=== PATIENT | male | born 1975 ===

== ENCOUNTER → 2020-11-30 12:15 | Outpatient (BNVA) | payer OTHER, SELFPAY | PROVIDERS: PCP Internal Medicine; Visit Provider Nurse Practitioner Gerontology | DX: Z76.89 Persons encountering health services in other specified circumstances (principal) ==

== ENCOUNTER → 2021-01-25 12:07 | Outpatient (BNVA) | payer OTHER, SELFPAY | PROVIDERS: Visit Provider Nurse Practitioner Gerontology ==

== ENCOUNTER 2022-05-25 11:57 | Emergency (ER) | payer OTHER, SELFPAY ==
[2022-05-25 12:23] VITALS: BP 146/96; PULSE 80; RESP 20; TEMP 36.1; O2SAT 96; BMI 44.9
[2022-05-25 14:29] LABS: MANUAL DIFF FLAG NO
[2022-05-25 14:30] LABS: Basophils Percent Auto 0.3 % (0-2); Eosinophils Absolute Auto 0.2 X10*3/uL (0.0-0.4); Eosinophils Percent Auto 1.4 % (0-4); Hemoglobin 16.4 g/dl (14.0-18.0); Imm Gran Abs Auto 0.07 X10*3/uL (0.00-0.03); Imm Gran Pct Auto 0.6 % (0.0-0.4); Lymphocytes Absolute Auto 3.8 X10*3/uL (1.2-4.9); Lymphocytes Percent Auto 30.1 % (20-40); Mean Corpuscular HGB Conc 33.5 g/dl (31.0-36.0); Mean Corpuscular Hemoglobin 29.2 pg (27.0-33.0); Mean Corpuscular Volume 87.3 fL (80.0-98.0); Mean Platelet Volume 9.1 fL (9.4-12.4); Monocytes Percent Auto 7.7 % (2-11); Neutrophils Absolute Auto 7.5 x10*3/uL (2.0-8.3); Neutrophils Percent Auto 59.9 % (45-73); Platelet Count 244 X10*3/uL (160-400); Red Blood Count 5.61 X10*6/uL (4.60-5.80); Red Cell Distribution Width 12.4 % (11.0-16.0); White Blood Count 12.5 X10*3/uL (4.8-10.8)
[2022-05-25 14:46] LABS: Anion Gap 11 (12-20); Blood Urea Nitrogen 12 mg/dL (9-16); Calcium 8.3 mg/dL (8.4-10.2); Carbon Dioxide 30 mmol/L (22-29); Chloride 101 mmol/L (96-108); Creatinine Clr Calc Pharmacy 134.5; Estimated Glomerular Filt Rate > 60; Glucose Random 180 mg/dL (60-115); Potassium 4.2 mmol/L (3.3-5.1); Sodium 138 mmol/L (135-145)
== END 2022-05-25 22:18 | disposition left against medical advice (07) ==
PROVIDERS: Emergency Provider Emergency Medicine; PCP Internal Medicine
DX: M25.642 Stiffness of left hand, not elsewhere classified (principal); M79.605 Pain in left leg; M79.604 Pain in right leg; E11.9 Type 2 diabetes mellitus without complications; I10 Essential (primary) hypertension; E78.5 Hyperlipidemia, unspecified; E66.09 Other obesity due to excess calories; Z68.42 Body mass index [BMI] 45.0-49.9, adult
CPT/HCPCS: 36415; 80048; 85025; 99281; 99283

== ENCOUNTER → 2022-10-02 12:35 | Outpatient (BNVA) | payer OTHER, SELFPAY | PROVIDERS: PCP Internal Medicine; Visit Provider Internal Medicine Endocrinology, Diabetes & Metabolism | DX: E11.65 Type 2 diabetes mellitus with hyperglycemia (principal); Z79.4 Long term (current) use of insulin | CPT/HCPCS: 82947; 83036; 99212 ==

== ENCOUNTER 2022-12-18 09:29 | Outpatient (REF) | payer OTHER, SELFPAY ==
--- NOTE | ~2022-12-18 | XR_ITS ---
EXAMINATION: XR FOOT, RIGHT CLINICAL INFORMATION: Pain COMPARISON: September 27, 2015. TECHNIQUE: AP, lateral, and oblique views of the right foot. FINDINGS: There is no evidence of acute fracture or dislocation of the right foot. No significant soft tissue swelling is seen. Vascular calcifications are noted. There is a calcaneal spur site of insertion of the Achilles tendon. XR/XR foot RT 2V IMPRESSION: Calcaneal spur. No significant bony abnormality appreciated.
--- NOTE | ~2022-12-18 | XR_ITS ---
EXAMINATION: XR CHEST CLINICAL INFORMATION: Cough COMPARISON: None TECHNIQUE: 2 views of the chest were obtained. FINDINGS: There is some bilateral opacities identified as well as bronchial wall thickening. Heart normal size. No pneumothorax or pleural effusion. XR/XR chest 2V IMPRESSION: Bilateral regions of patchy disease with interstitial prominence. Above findings could be seen with interstitial edema, infectious etiology, or possible reactive airways disease.
--- NOTE | ~2022-12-18 | XR_ITS ---
EXAMINATION: XR FOOT, LEFT CLINICAL INFORMATION: Right foot pain COMPARISON: 09/27/2015 TECHNIQUE: AP, lateral, and oblique views of the left foot. FINDINGS: There is no evidence of acute fracture or dislocation of the left foot. No destructive bony lesions are identified. Stable calcaneal spurs sites of insertion of Achilles tendon is seen. There has been an increase in degenerative spurring about the dorsum of the talar navicular joint. No overlying soft tissue swelling is appreciated in this location. There is stability of an exostosis dorsally off of the talar bone. There appears to be a stable pes cavus deformity. XR/XR foot LT 2V IMPRESSION: No evidence of acute fracture or dislocation of the right foot. Calcaneal spur. Mild increase in degenerative spurring dorsum of the talonavicular joint.
[2022-12-18 11:30] LABS: Alanine Aminotransferase 29 U/L (0-40); Albumin Level 4.1 g/dL (3.5-5.0); Alkaline Phosphatase 140 U/L (39-117); Anion Gap 15 (12-20); Aspartate Amino Transferase 18 U/L (5-37); Bilirubin Total 0.4 mg/dL (0.0-1.0); Blood Urea Nitrogen 14 mg/dL (9-16); Calcium 9.1 mg/dL (8.4-10.2); Carbon Dioxide 28 mmol/L (22-29); Chloride 99 mmol/L (96-108); Cholesterol 214 mg/dL; Estimated Glomerular Filt Rate > 60; Glucose Fasting 166 mg/dL (60-99); HDL Cholesterol 27 mg/dL; LDL Cholesterol Calculated 146 mg/dl; Potassium 5.3 mmol/L (3.3-5.1); Sodium 137 mmol/L (135-145); Total Protein 7.6 g/dL (6.5-8.0); Triglycerides 209 mg/dL
[2022-12-18 11:47] LABS: Vitamin D 25-OH Total 18.3 ng/mL (>30)
[2022-12-18 13:32] LABS: Creatinine Urine 70.16 mg/dL; Microalbum/Creatinine Ratio Ur 34.2 ug/mg cr
== END 2022-12-18 09:30 | disposition home or self-care (01) ==
LOC: HO.XRAY 09:29
PROVIDERS: PCP Internal Medicine; Visit Provider Internal Medicine
DX: M79.671 Pain in right foot (principal); M79.672 Pain in left foot; R05.9 Cough, unspecified; E11.42 Type 2 diabetes mellitus with diabetic polyneuropathy; E78.5 Hyperlipidemia, unspecified; E55.9 Vitamin D deficiency, unspecified; Z79.4 Long term (current) use of insulin
CPT/HCPCS: 36415; 71046; 73620; 80053; 80061; 82043; 82306

== ENCOUNTER 2023-01-22 09:56 | Outpatient (REF) | payer OTHER, SELFPAY ==
[2023-01-22 11:47] LABS: Cholesterol 221 mg/dL; HDL Cholesterol 25 mg/dL; LDL Cholesterol Calculated 138 mg/dl; Triglycerides 291 mg/dL
[2023-01-22 12:40] LABS: Microalbum/Creatinine Ratio Ur 17.6 ug/mg cr
== END 2023-01-22 09:57 | disposition home or self-care (01) ==
LOC: HO.LAB 09:56
PROVIDERS: PCP Internal Medicine; Visit Provider Internal Medicine Endocrinology, Diabetes & Metabolism
DX: E11.65 Type 2 diabetes mellitus with hyperglycemia (principal); E11.42 Type 2 diabetes mellitus with diabetic polyneuropathy; E78.5 Hyperlipidemia, unspecified; Z79.4 Long term (current) use of insulin; Z79.899 Other long term (current) drug therapy
CPT/HCPCS: 36415; 80061; 82043; 82947; 83036; 99212

== ENCOUNTER → 2023-04-04 14:56 | Outpatient (BNVA) | payer OTHER, SELFPAY | PROVIDERS: PCP Internal Medicine; Visit Provider Nurse Practitioner Family | DX: M79.671 Pain in right foot (principal); M79.672 Pain in left foot; E11.40 Type 2 diabetes mellitus with diabetic neuropathy, unspecified; M79.605 Pain in left leg; M79.604 Pain in right leg; I73.9 Peripheral vascular disease, unspecified | CPT/HCPCS: 99202 ==

== ENCOUNTER 2023-05-16 09:14 | Outpatient (AMB) | payer OTHER, SELFPAY ==
--- NOTE | 2023-05-16 09:20 | MHC.PC.OV ---
Vital Signs 05/16/23 09:22 Height 6 ft 1 in Weight 306 lb BMI 40.4 BP 120/78 Blood Pressure Location Lt brachial Position Sitting Intake Visit Reasons: PE Intake Note: Patient here for a physical exam Motor Vehicle Licence Examiner Required: No Accompanied by: Self / Same As Patient Allergies No Known Allergies Allergy (Verified 05/16/23 09:39) Medication List - Last Reconciled 05/16/23 by Skylar Luna MD alcohol swabs 1 pad topical QID amitriptyline 25 mg PO BEDTIME atorvastatin 40 mg PO BEDTIME 90 days blood sugar diagnostic (FreeStyle Lite Strips) 1 strip miscellaneous QID blood-glucose meter (FreeStyle Lite Meter kit) As directed empagliflozin (Jardiance) TAKE 1 TABLET BY MOUTH EVERY DAY flash glucose scanning reader (FreeStyle Brandy 2 [place]) As directed flash glucose sensor (FreeStyle Brandy 2 Sensor kit) As directed change every 14 days gabapentin 300 mg PO TID 30 days ibuprofen 800 mg PO Q8H PRN insulin regular hum U-500 conc (Humulin R U-500 (Conc) Insulin Kwikpen) 95 units before breakfast and 75 units before supper subcutaneously; lancets (FreeStyle Lancets) Use 1 lancet four times a day lidocaine-prilocaine 2.5-2.5 % 1 appl topical ONCE metformin 1,000 mg (2 x 500 mg) PO BID omeprazole 20 mg PO QAM 90 days pen needle, diabetic (BD Ultra-Fine Earnestine Pen Needle) As directed two daily semaglutide (Ozempic) 0.25 mg (0.4 mL) subcut QWEEK 90 days Tobacco use date assessed: 12/06/22 Dental Screening Dental Screen Date: 05/16/23 Did you have a dental visit in the last 12 months?: No Did you have a dental problem in the last 6 months where you did not have access to dental care?: No Was dental information given to patient?: No HPI HPI Comments History of Present Illness Details This is a 48-year-old male with diabetes mellitus type 2 on long-term current use of insulin, morbid obesity and moderate recurrent major depression that comes today for his physical exam. A1c within goal. Depression somewhat stable with amitriptyline. He is morbidly obese with a BMI of 40.4 and will be referred to weight management. On gabapentin for his painful diabetic neuropathy which is is still present. He also has pain in both hands and is not able to make a fist. Not able to work at the moment. Has never had a colonoscopy and will be referred to Gastroenterology. No diabetic eye exam for over a year and will be referred to Ophthalmology. Labs were ordered. [facility] Medical History (Updated 05/16/23 @ 10:00 by Skylar Luna MD) BMI 36.0-36.9,adult Diabetes mellitus with hyperglycemia Essential hypertension Foot pain, bilateral Hyperhidrosis Hyperlipidemia LDL goal <100 Neuropathy Obesity due to excess calories Type 2 diabetes mellitus with diabetic polyneuropathy Surgical History Hx of foot surgery Hx of tonsillectomy Family History Father No problems noted. Mother Diabetes mellitus Social History (Updated 05/16/23 @ 09:44 by Skylar Luna MD) Household Members: Family Housing: Apartment Alcohol intake: former Patient Tobacco Use Status: Current everyday Tobacco user Tobacco use type: Cigarette Cigarettes Per Day: 2 e-Cigarette/Vaping Use: Never Used Second Hand Smoke Exposure: No Substance Use Type: Crack/Cocaine service: No Current occupational status: unemployed Cognitive needs: No Hearing needs: No Vision needs: No Questionnaire Thrive Questionnaire Date Thrive assessed: 12/06/22 ROB-7 AMB Questionnaire ROB-7 Date ROB - 7 assessed: 12/06/22 Source: Developed by Drs. Jayson Hayden, Shaenlle Kee, Chico Ernandez and colleagues, with an educational manny from [employer]. Review of Systems Const All systems reviewed & are unremarkable except as noted in HPI and below Eyes Reports no additional complaints, Denies change in vision and Denies other visual disturbances Card Denies chest pain at rest, Denies chest pain with activity, Denies edema, Denies irregular heart rhythm, Denies claudication, Denies dyspnea, Denies dyspnea on exertion, Denies orthopnea, Denies paroxysmal nocturnal dyspnea and Denies slow heart rate Resp Denies cough, Denies dyspnea and Denies dyspnea on exertion GI Denies abdominal pain, Denies change in bowel habits, Denies excessive flatus, Denies nausea and Denies vomiting Denies urinary hesitancy, Denies urinary incontinence and Denies urinary urgency Musc Denies abnormal gait, Denies atrophy, Denies deformity and Denies limited range of motion Skin/Breast Denies bleeding lesions, Denies changing lesions and Denies rash Neuro Denies abnormal gait and Denies lack of coordination Physical exam (Primary Care) Vital Signs: Last Vital Signs BP 120/78 05/16/23 09:22 BMI result Body Mass Index 40.4 Tobacco/Smoking Status: Tobacco use Status Tobacco use date assessed 12/06/22 05/16/23 09:28 Patient Tobacco Use Status Current everyday Tobacco 05/16/23 09:28 Tobacco use type Cigarette 05/16/23 09:28 e-Cigarette/Vaping Use Never Used 05/16/23 09:28 Thrive Assessment: Date of Thrive Assessment Date Thrive assessed 12/06/22 05/16/23 09:28 Const Orientation/consciousness: patient oriented x3 HENMT Head: Yes normal to inspection, Yes normocephalic and Yes atraumatic Ears: external ears normal Eyes General: appearance normal, both eyes and all related structures Eyelids: Yes eyelids normal Conjunctivae: conjunctivae normal Neck Neck: Yes normal visual inspection and Yes supple Resp Effort & Inspection: normal respiratory effort Auscultation: clear to auscultation bilaterally Cardio Jugular venous distension: no JVD Rate: regular rate Rhythm: regular rhythm Heart sounds: S1 normal heart sound present and S2 normal heart sound present GI Inspection: Yes normal to inspection Palpation (GI): Soft to palpation and nontender Auscultation: normal bowel sounds Skin General skin exam: no rashes or lesions noted Neuro General: patient oriented x3 and no focal motor deficits Extrem Other: Not able to make a fist bilateral General: Yes full ROM Psych Appearance: grossly normal Results AMB Hemoglobin A1c AMB Hemoglobin A1c 6.6 % Last Edit by SAEED Linder on 05/16/23 09:33 Results Reviewed Results Reviewed: Laboratory Last Values Hgb A1c (Clinic) 6.6 % (4.0-6.0) H 05/16/23 09:29 Assessment and Plan Assessment & Plan (1) Physical exam: Code(s): Z00.00 - Encounter for general adult medical examination without abnormal findings Plan: Repeat in a year. (2) Type 2 diabetes mellitus, with long-term current use of insulin: Code(s): E11.9 - Type 2 diabetes mellitus without complications; Z79.4 - MCC (current) use of insulin Plan: Continue insulin, metformin and ozempic. A1c goal is equal or less than 7% (3) Moderate recurrent major depression: Code(s): F33.1 - Major depressive disorder, recurrent, moderate Plan: Continue amitriptyline. (4) Morbid obesity with BMI of 40.0-44.9, adult: Code(s): E66.01 - Morbid (severe) obesity due to excess calories; Z68.41 - Body mass index [BMI] 40.0-44.9, adult Plan: Referred to weight management Orders: Orders Vitamin B12 and Folate Today E53.8 - Deficiency of other specified B group vitamins Comprehensive [place]. Panel Fast Today E66.01 - Morbid (severe) obesity due to excess calories, Z68.41 - Body mass index [BMI] 40.0-44.9, adult Lipid Panel Today E78.5 - Hyperlipidemia, unspecified Vitamin D 25-OH Total Today E55.9 - Vitamin D deficiency, unspecified OT Evaluation and Treatment Today M79.641 - Pain in right hand, M79.642 - Pain in left hand AMB Hemoglobin A1c Today E11.42 - Type 2 diabetes mellitus with diabetic polyneuropathy Referrals Medical Weight Management Referral E66.01 - Morbid (severe) obesity due to excess calories, Z68.41 - Body mass index [BMI] 40.0-44.9, adult Ophthalmology Referral E11.65 - Type 2 diabetes mellitus with hyperglycemia, Z79.4 - spacer type bar and segment (current) use of insulin Gastroenterology Referral Z12.11 - Encounter for screening for malignant neoplasm of colon Medications: Refilled semaglutide (Ozempic) for 4 weeks 0.25 mg (0.4 mL) subcut QWEEK 90 days 5.2 mL 2RF E11.65 - Type 2 diabetes mellitus with hyperglycemia Coding Level of Care Code Est Pt Prev Care 40-64y(98366) Diagnoses Physical exam Z00.00 Type 2 diabetes mellitus, with long-term current use of insulin E11.9; Z79.4 Moderate recurrent major depression F33.1 Morbid obesity with BMI of 40.0-44.9, adult E66.01; Z68.41 Time Spent (min) 35
[2023-05-16 09:22] VITALS: BP 120/78; BMI 40.4
== END 2023-05-16 09:50 | disposition home or self-care (01) ==
PROVIDERS: Visit Provider Internal Medicine
DX: Z00.00 Encounter for general adult medical examination without abnormal findings (principal); Z79.4 Long term (current) use of insulin; F33.1 Major depressive disorder, recurrent, moderate; E66.01 Morbid (severe) obesity due to excess calories; Z68.41 Body mass index [BMI] 40.0-44.9, adult; E11.42 Type 2 diabetes mellitus with diabetic polyneuropathy
CPT/HCPCS: 83036; 99396

== ENCOUNTER 2023-05-16 15:47 | Outpatient (AMB) | payer OTHER, SELFPAY ==
--- NOTE | 2023-05-16 15:48 | MHC.OFFVIS ---
Intake Intake Visit Reasons: SECTION WEAVER/Ref pain Manag. PVD/ LE pain Intake Note: Patient is here for a SECTION WEAVER/Referral from pain management for PVD/LE pain, pt c/o Maximo LE cramping/tingling, numbness, swelling, unable to walk short distances. patient stated his symptoms started a few years ago, patient is diabetic, patient is a smoker, no hx of blood clots Associate Software Application Engineer Required: Yes Associate Software Application Engineer Name: Pamela Adalberto CLCaren Allergies No Known Allergies Allergy (Verified 05/16/23 15:51) HPI SECTION WEAVER/Ref pain Manag. PVD/ LE pain HPI Details Complex 48-year-old gentleman presents for evaluation regarding pain and discomfort of the lower extremities. Unclear white is currently going on with his legs. He reports that they are painful uncomfortable he reports that there is more pain and burning towards the lower portion of his foot and heel. He has some numbness and tingling as well. He is requiring the use of a cane. He can barely walk a block. He reports that they are or also a source of itching and discomfort for him. Spoke reports only 2-6 3 cigarettes a day. In addition he has been a diabetic for 6-7 years. Now presents to us for vascular evaluation. [facility] Medical History BMI 36.0-36.9,adult Diabetes mellitus with hyperglycemia Essential hypertension Foot pain, bilateral Hyperhidrosis Hyperlipidemia LDL goal <100 Neuropathy Obesity due to excess calories Type 2 diabetes mellitus with diabetic polyneuropathy Surgical History Hx of foot surgery Hx of tonsillectomy Family History Father No problems noted. Mother Diabetes mellitus Social History Household Members: Family Housing: Apartment Alcohol intake: former Patient Tobacco Use Status: Current everyday Tobacco user Tobacco use type: Cigarette Cigarettes Per Day: 2 e-Cigarette/Vaping Use: Never Used Second Hand Smoke Exposure: No Substance Use Type: Crack/Cocaine service: No Current occupational status: unemployed Cognitive needs: No Hearing needs: No Vision needs: No Review of Systems Const All systems reviewed & are unremarkable except as noted in HPI and below Reports no additional complaints ENT Reports Normal hearing present Card Denies chest pain, Denies chest pain at rest, Denies chest pain with activity and Denies pedal edema Resp Denies cough GI Denies abdominal pain Musc Denies abnormal gait, Denies muscle cramps and Denies radiating pain into limb Skin/Breast Denies skin ulcer and Denies wounds Neuro Reports Normal hearing present and Denies abnormal gait Psych Reports no additional complaints Physical Exam Const General: cooperative, healthy appearing and comfortable Orientation/consciousness: oriented to person, oriented to place and oriented to time HEENT Head: Yes normal to inspection Neck Neck: Yes normal visual inspection Carotids: no bruits Chest Chest palpation & inspection: normal inspection of the chest Resp Effort & Inspection: normal respiratory effort and able to speak in complete sentences Auscultation: clear to auscultation bilaterally, no crackles, no rales, no rhonchi and no wheezes Cardio Other: Bilateral DP signal Rate: regular rate Rhythm: regular rhythm Heart sounds: S1 normal heart sound present and S2 normal heart sound present Bruits: no carotid bruits Peripheral pulses: Peripheral pulses 2+ throughout GI Inspection: Yes normal to inspection Skin Other: Dry excoriated pretibial surfaces in calf bilateral lower extremity Wounds: no wounds Hair: normal Neuro General: oriented to person, oriented to place and oriented to time Cranial nerves: Yes CN's II-XII intact bilaterally and Yes Normal hearing present Cognition (Neuro): normal cognition Motor exam (neuro): 5/5 motor strength present throughout Extrem Other: venous exam: No significant superficial varicosities or spider telangiectasias, minimal edema General: No clubbing, No cyanosis and No edema Psych Appearance: grossly normal Mental Status: mental status grossly normal Speech and movement: Normal speech and movement present Results AMB Hemoglobin A1c AMB Hemoglobin A1c 6.6 % Last Edit by SAEED Linder on 05/16/23 09:33 Assessment & Plan Assessment & Plan (1) PAD (peripheral artery disease): Code(s): I73.9 - Peripheral vascular disease, unspecified Plan: Unclear etiology of lower extremity pain and discomfort. I was unable to appreciate palpable pulses. I have taken the liberty of ordering noninvasive arterial testing. I do suspect there is a neuropathic component as he did have elevated hemoglobin A1cs in the past. Once we rule that out we can assess him further. He will follow up with us after arterial testing. We did discuss risk factor modification and the importance of ambulation. In addition we did discuss smoking cessation as well. Thank you for allowing us to assist in his care. If there are any questions or concerns please do not hesitate to contact us. Orders: Orders US arterial duplex LE BI 1 Week I73.9 - Peripheral vascular disease, unspecified Quality Reporting (2019) Adult ([facility] 138/12/26/68) Smoking risk assessment performed?: Yes Patient Tobacco Use Status: Current everyday Tobacco user Coding Level of Care Code New Pt Level 4 (15400) Diagnoses PAD (peripheral artery disease) I73.9
== END 2023-05-16 16:19 | disposition home or self-care (01) ==
PROVIDERS: PCP Internal Medicine; Visit Provider Surgery Vascular Surgery
DX: I73.9 Peripheral vascular disease, unspecified (principal)
CPT/HCPCS: 99204

== ENCOUNTER → 2023-05-16 15:47 | Outpatient (BNVA) | payer OTHER, SELFPAY | PROVIDERS: PCP Internal Medicine; Visit Provider Surgery Vascular Surgery | DX: I73.9 Peripheral vascular disease, unspecified (principal) | CPT/HCPCS: 99202 ==

== ENCOUNTER 2023-06-25 13:58 | Outpatient (AMB) | payer OTHER, SELFPAY ==
--- NOTE | 2023-06-25 14:09 | A.OFFVIS_ITS ---
Intake VS Expanded 06/25/23 14:10 Height 6 ft 1 in Weight 302 lb 7.587 oz BMI 39.9 Intake Visit Reasons: Type 2 DM Allergies No Known Allergies Allergy (Verified 05/16/23 15:51) HPI Nutrition Presentation Details Pt presents for MNT for T2DM . Pt was referred by Dr. Sahni, cupola patcher Pt reports having Rice/beans , ice tea sandwhich with ham/cheese TUJ-Jybqhnb-Tj.Jeor Equation Height 6 ft 1 in Weight 302 lb Resting Metabolic Rate 2286.35 Calculated Activity Level Sedentary Calories Needed to Maintain Weight 2743.62 Diagnosis Nutrition problem #1 food nutri know defi As related to (etiology) #1 diagnosis As evidenced by (sign/symptom) #1 knowledge deficit of diet Most Recent Diabetes Results: Microalb/Creat Ratio 17.6 ug/mg cr 01/22/23 Cholesterol 221 mg/dL 01/22/23 HDL Cholesterol 25 mg/dL 01/22/23 Triglycerides 291 mg/dL 01/22/23 Creatinine 0.95 mg/dL (0.5-1.4) 12/18/22 Blood Urea Nitrogen 14 mg/dL (9-16) 12/18/22 Sodium 137 mmol/L (135-145) 12/18/22 Potassium 5.3 mmol/L (3.3-5.1) H 12/18/22 Chloride 99 mmol/L (96-108) 12/18/22 Carbon Dioxide 28 mmol/L (22-29) 12/18/22 Calcium 9.1 mg/dL (8.4-10.2) 12/18/22 AST 18 U/L (5-37) 12/18/22 ALT 29 U/L (0-40) 12/18/22 Total Protein 7.6 g/dL (6.5-8.0) 12/18/22 Albumin 4.1 g/dL (3.5-5.0) 12/18/22 [facility] Medical History BMI 36.0-36.9,adult Diabetes mellitus with hyperglycemia Essential hypertension Foot pain, bilateral Hyperhidrosis Hyperlipidemia LDL goal <100 Neuropathy Obesity due to excess calories Type 2 diabetes mellitus with diabetic polyneuropathy Surgical History Hx of foot surgery Hx of tonsillectomy Family History Father No problems noted. Mother Diabetes mellitus Social History Household Members: Family Housing: Apartment Alcohol intake: former Patient Tobacco Use Status: Current everyday Tobacco user Tobacco use type: Cigarette Cigarettes Per Day: 2 e-Cigarette/Vaping Use: Never Used Second Hand Smoke Exposure: No Substance Use Type: Crack/Cocaine service: No Current occupational status: unemployed Cognitive needs: No Hearing needs: No Vision needs: No Assessment & Plan Assessment & Plan (1) Type 2 diabetes mellitus, with long-term current use of insulin: Code(s): E11.9 - Type 2 diabetes mellitus without complications; Z79.4 - long term acute care registered nurse (current) use of insulin Plan: wt: 137 kg Est kcal needs as per MSJ: 2700 (40% carb, 30% protein/fat) Est fluid needs as per 25- ml/d: 3425 Est prot per day as per 1 g/kg bw: 137 Recommend fiber intake : 8-10 g per day and gradually increase to 25-28 g per day for women and 35-38 g for men or as tolerated Recommend sodium intake per day : less than 2000 mg Educated patient on: ( R = reviewed V = verbalizes understanding N/R = needs review N/A = not applicable * Food sources of carbohydrate, adequate serving sizes and its role in various health conditions: R * Differences between complex carbohydrates a simple carbohydrates, role of fiber in diet: R * Differences between types of fats and role in diet (mono on saturated fat fatty acids, saturated fatty acids, trans fats): R * Food sources of sodium in salt and healthy modifications for heart health in kidney health: R * Vitamins and minerals: R * Healthy plate method concept: R * Physical activity: Benefits a precaution: R * Hypoglycemia protocol (rule of 15): R * Dietary prevention of Hyperglycemia: R Patient Instructions: Choose fish at least twice a week (sand with olive oil and vinegar and lettuce/tomato ) instead of fritters HAve vegetable juice diluted with water instead of ice tea or juice drinks See list of meal options low in sat'd fats and high in fiber Coding Level of Care Code Nutr Indiv Intake (54328) Diagnoses Type 2 diabetes mellitus, with long-term current use of insulin E11.9; Z79.4 Time Spent (min) 40
[2023-06-25 14:10] VITALS: BMI 39.9
[2023-06-25 14:44] VITALS: BMI 39.8
== END 2023-06-25 14:41 | disposition home or self-care (01) ==
PROVIDERS: PCP Internal Medicine; Visit Provider Dietitian, Registered
DX: E11.9 Type 2 diabetes mellitus without complications (principal); Z79.4 Long term (current) use of insulin

== ENCOUNTER → 2023-06-25 13:58 | Outpatient (BNVA) | payer OTHER, SELFPAY | PROVIDERS: Visit Provider Dietitian, Registered | DX: E11.9 Type 2 diabetes mellitus without complications (principal); Z79.4 Long term (current) use of insulin | CPT/HCPCS: 97802 ==

== ENCOUNTER 2023-07-24 13:28 | Outpatient (AMB) | payer OTHER, SELFPAY ==
--- NOTE | 2023-07-24 13:42 | A.OFFVIS_ITS ---
Intake Vital Signs 07/24/23 13:43 Height 6 ft 1 in Weight 298 lb 1.039 oz BMI 39.3 BP 127/74 Blood Pressure Location Lt brachial Position Sitting Pulse 64 Intake Visit Reasons: [facility] Screening Intake Note: Patient presents to in office visit today as a new patient for colonoscopy screening. CC: Patient reports occasional heartburn. Denies other GI symptoms or concerns today. Community Health Navigator Required: Yes Allergies No Known Allergies Allergy (Verified 07/24/23 13:48) HPI [facility] Screening HPI Details 48 year old? male with past medical hist ory PAD, diabetes, PVD, diabetic neuropathy, morbid obesity, hyperlipidemia, hypertension, obesity is here today for pre colonoscopy screening.? Patient was sent to us by his PCP.? This is his first colonoscopy screening.? Patient denies any gastrointestinal symptoms in the past or at present.? Denies any personal or family history of gastrointestinal disease, colon polyps, or cancer.? Denies history of difficulty with sedation or anesthesia in the past.? History of sleep apnea, unable to wear CPAP machine as was making him very dry. ?Tonsillectomy over 5 years ago no trouble with anesthesia then. Take Denies any history of cardiac, renal, pulmonary, or hepatic disease.?? No history of infectious? diseases like hepatitis A, B, C, HIV or tuberculosis.? Patient is not on any anticoagulation therapy. FORMERLY [facility], [facility]–1983 Medical History Foot pain, bilateral Hyperhidrosis Neuropathy Diabetes mellitus with hyperglycemia Type 2 diabetes mellitus with diabetic polyneuropathy Essential hypertension Hyperlipidemia LDL goal <100 Obesity due to excess calories BMI 36.0-36.9,adult Surgical History Hx of foot surgery Hx of tonsillectomy Family History Father No problems noted. Mother Diabetes mellitus Social History Household Members: Family Housing: Apartment Alcohol intake: former Patient Tobacco Use Status: Current everyday Tobacco user Tobacco use type: Cigarette Cigarettes Per Day: 2 e-Cigarette/Vaping Use: Never Used Second Hand Smoke Exposure: No Substance Use Type: Crack/Cocaine service: No Current occupational status: unemployed Cognitive needs: No Hearing needs: No Vision needs: No Review of Systems Const Denies weight gain and Denies weight loss ENT Reports no additional complaints, Denies dysphagia and Denies odynophagia Card Reports no additional complaints Resp Reports no additional complaints GI Denies abdominal pain, Denies belching, Denies melena, Denies bloating, Denies change in bowel habits, Denies dysphagia, Denies excessive flatus, Denies dyspepsia, Denies heartburn, Denies diarrhea, Denies loose stools, Denies nausea, Denies odynophagia and Denies vomiting Reports no additional complaints Musc Reports no additional complaints Neuro Reports no additional complaints Psych Reports no additional complaints Endo Reports no additional complaints Physical Exam Vital Signs: Last Vital Signs Pulse 64 07/24/23 13:43 BP 127/74 07/24/23 13:43 BMI result Body Mass Index 39.3 Const General: healthy appearing, no acute distress and well developed Nutritional Appearance: obese Orientation/consciousness: patient oriented x3 HEENT Head: Yes normal to inspection, Yes normocephalic and Yes atraumatic Face and sinus: Yes normal facial exam Mouth: Normal oral and palatal mucosa present Throat: Yes posterior oropharynx normal, Yes tonsils normal and Yes uvula midline Eyes General: appearance normal, both eyes and all related structures Neck Neck: Yes normal visual inspection, Yes full ROM and Yes trachea midline Thyroid: Thyroid normal Resp Effort & Inspection: normal respiratory effort, able to speak in complete sentences, no tracheal deviation and symmetric chest movement Auscultation: clear to auscultation bilaterally Cardio Rate: regular rate Heart sounds: S1 normal heart sound present and S2 normal heart sound present GI Inspection: Yes normal to inspection, No distended and Yes obesity Palpation (GI): Soft to palpation, not firm, nontender and No hepatosplenomegaly present Auscultation: normal bowel sounds General: Yes no CVA tenderness Back/Spine/Pelvis Back: no CVA tenderness Skin General skin exam: elasticity normal, turgor normal and dry skin Neuro General: patient oriented x3 Psych Appearance: grossly normal Mental Status: mental status grossly normal Assessment & Plan Assessment & Plan (1) Screen for colon cancer: Code(s): Z12.11 - Encounter for screening for malignant neoplasm of colon Plan: Patient denies any GI, cardiac or respiratory symptoms.? Denies any issues with anesthesia in the past.? Last surgery over 5 years ago patient had tonsillectomy no issues then. Diagnosed with sleep apnea. Patient reports that he could not tolerate CPAP machine. No history infectious diseases in the past or present.? Not on any anticoagulation therapy.? No family or personal history of colon cancer or polyps.? Patient denies melena, hematochezia, unintentional weight los s or ribbon like stools.? Discussed at length the pre-procedure,? prep, diet & medications as well as what to expect prior, during and after the procedure.?? Stressed the importance of good bowel prep. ?Recommended the use of Vaseline or Calmoseptine OTC & baby wipes with bowel movements to promote comfort.? ?Patient verbalizes understanding and agrees to plan of care.? He was given the opportunity to ask questions and all questions answered.? We will see him after the procedure.? Medications: New bisacodyl (Dulcolax (bisacodyl)) take 2 tabs at noon the day before your colonoscopy 10 mg (2 x 5 mg) PO ONCE 1 day 4 tabs 0RF Z12.11 - Encounter for screening for malignant neoplasm of colon polyethylene glycol 3350 (Miralax) As directed by gastroenterology department at [facility] 238 grams PO ONCE 238 grams 0RF Z12.11 - Encounter for screening for malignant neoplasm of colon Quality Reporting (2020) Adult ([facility] 13812/26/68) Smoking risk assessment performed?: Yes Patient Tobacco Use Status: Current everyday Tobacco user Coding Level of Care Code New Pt Level 3 (96513) Diagnoses Screen for colon cancer Z12.11 Time Spent (min) 40 Comment 30 minutes spent with patient and additional 10 minutes spent reviewing his records
[2023-07-24 13:43] VITALS: BP 127/74; PULSE 64; BMI 39.3
== END 2023-07-24 14:40 | disposition home or self-care (01) ==
PROVIDERS: PCP Internal Medicine; Visit Provider Nurse Practitioner Family
DX: Z12.11 Encounter for screening for malignant neoplasm of colon (principal); Z01.818 Encounter for other preprocedural examination
CPT/HCPCS: 99203

== ENCOUNTER → 2023-07-24 13:28 | Outpatient (BNVA) | payer OTHER, SELFPAY | PROVIDERS: PCP Internal Medicine; Visit Provider Nurse Practitioner Family ==

== ENCOUNTER 2023-09-17 09:13 | Outpatient (AMB) | payer OTHER, SELFPAY ==
[2023-09-17 09:17] VITALS: BP 118/80; PULSE 74; BMI 39.6
--- NOTE | 2023-09-17 09:17 | A.OFFVIS_ITS ---
Intake Vital Signs 09/17/23 09:17 Height 6 ft 1 in Weight 300 lb 4.313 oz BMI 39.6 BP 118/80 Blood Pressure Location Lt brachial Position Sitting Pulse 74 Pulse Source Pulse Oximeter Intake Visit Reasons: DM-CONFIRMED Intake Note: Patient presents today to follow up on Type 2 Diabetes Mellitus. Last Diabetic Eye exam: Pt has never had one. Last Podiatry Visit:None Random Glucose: 140 mg/dl HgA1C:7.4% Type Cutter Required: Yes Type Cutter Language: Medical Office Technician Name: Leni medical staff Information Interpreted: non-clinical & clinical Accompanied by: Self / Same As Patient Allergies No Known Allergies Allergy (Verified 09/17/23 09:22) HPI HPI Comments History of Present Illness Details Patient is a 47 yo male with DM type 2 diagnosed approximately 2003, who presents for management of diabetes. Past medical history: Diabetes, neuropathy, hypertension, hyperlipidemia Micro and macrovascular complications: + neuropathy, Diabetes medications: Humulin U 500 95 units in the morning, 75 units in the evening prior to meals. metformin 1G BID, Jardiance 25 mg , Trulicity 1.5mg stopped because of nausea . Did not try Ozempic Symptoms reported: + numbness, tingling, pain, cramping in lower extremities Hypoglycemia: denies Hyperglycemia: denies polyuria, nocturia once a night on occasion, reports polydypsia Unfortunately, patient did not bring log book ol glucometer or sensor to follow-up visit. Apparently Brandy sensor was broken . Eye exam: Needs to make appt Does not see podiatry [facility] Medical History Foot pain, bilateral Hyperhidrosis Neuropathy Diabetes mellitus with hyperglycemia Type 2 diabetes mellitus with diabetic polyneuropathy Essential hypertension Hyperlipidemia LDL goal <100 Obesity due to excess calories BMI 36.0-36.9,adult Surgical History Hx of foot surgery Hx of tonsillectomy Family History Father No problems noted. Mother Diabetes mellitus Social History Household Members: Family Housing: Apartment Alcohol intake: former Patient Tobacco Use Status: Current everyday Tobacco user Tobacco use type: Cigarette Cigarettes Per Day: 2 e-Cigarette/Vaping Use: Never Used Second Hand Smoke Exposure: No Substance Use Type: Crack/Cocaine service: No Current occupational status: unemployed Cognitive needs: No Hearing needs: No Vision needs: No Physical Exam Vital Signs: Last Vital Signs Pulse 74 09/17/23 09:17 BP 118/80 09/17/23 09:17 BMI result Body Mass Index 39.6 Absence of Cushingoid features. Absence of acromegalic features. Neck exam reveals nl size thyroid about 15 gms. No thyroid nodules palpable. No carotid bruits present. Lungs CTA. Heart S1 S2, Reg R/R. No M/R/ G. Skin exam reveals absence of vitiligo or acanthosis nigricans. Abdominal exam reveals Soft NT/ND with NA BS. No organomegaly present. Neck Other: . Extrem Other: Visual exam of foot performed. No ulcerations or open lesions. No onchomycosis, no callouses. both lower extremities have dry patches.Pulses 2 + distally Sensation Decreased to monofilament exam. Vibratory sensation sensed is decrease with 128 Hz tuning fork. There is scaly dry skin on both lower extremities from the knee to the foot Results AMB Hemoglobin A1c AMB Hemoglobin A1c 7.4 % Last Edit by Niharika Pat on 09/17/23 09:40 Results Reviewed Results Reviewed: 09/17/23 09:25 Glucose, Whole Blood Routine Laboratory Last Values Glucose (Clinic) 140 mg/dL (60-115) H 09/17/23 09:25 Assessment & Plan Assessment & Plan (1) Diabetes mellitus with hyperglycemia: Code(s): E11.65 - Type 2 diabetes mellitus with hyperglycemia Qualifiers: Diabetes mellitus intermediate insulin use: with intermediate use Diabetes mellitus type: type 2 Qualified Code(s): E11.65 - Type 2 diabetes mellitus with hyperglycemia; Z79.4 - shelter (current) use of insulin Plan: This is a 48-year-old male with a history of type 2 diabetes being treated with metformin, Trulicity, Jardiance and U-500 insulin but noncompliant with poor glycemic control and known microvascular complications namely neuropathy. . We could not make any adjustments in the patient's regimen because there were no blood sugars to view. He was scheduled for an appointment with the patient educator tomorrow to reiniate and troubleshoot the sensor. and also an appt with transition advisor. I also refilled his freestyle Brandy. . With the help of the clothes drier repairer I explained the relationship between poor glycemic control in development and progression of complication. I also told patient to schedule an appointment with the stitching machine feeder or offbearer and follow-up with Podiatry. (2) Hyperlipidemia LDL goal <70: Code(s): E78.5 - Hyperlipidemia, unspecified Plan: Will start atorvastatin 10 mg q.d. and recheck lipid profile in 6 weeks Orders: Orders AMB Hemoglobin A1c Today E11.9 - Type 2 diabetes mellitus without complications, Z79.4 - intermediate card tender (current) use of insulin Quality Reporting (2019) Adult ([facility] 138/2/) Smoking risk assessment performed?: Yes Patient Tobacco Use Status: Current everyday Tobacco user Coding Level of Care Code Est Pt Level 4 (08232) Diagnoses Type 2 diabetes mellitus with hyperglycemia, with long-term current use of insulin E11.65; Z79.4 Diabetes mellitus medical terminologist insulin use: with intermediate use Diabetes mellitus type: type 2 Hyperlipidemia LDL goal <70 E78.5
[2023-09-17 09:31] LABS: Glucose, Whole Blood 140 mg/dL (60-115)
== END 2023-09-17 09:42 | disposition home or self-care (01) ==
PROVIDERS: PCP Internal Medicine; Visit Provider Internal Medicine Endocrinology, Diabetes & Metabolism
DX: E11.65 Type 2 diabetes mellitus with hyperglycemia (principal); Z79.4 Long term (current) use of insulin; E78.5 Hyperlipidemia, unspecified; E11.9 Type 2 diabetes mellitus without complications
CPT/HCPCS: 99214

== ENCOUNTER → 2023-09-17 09:13 | Outpatient (BNVA) | payer OTHER, SELFPAY | PROVIDERS: PCP Internal Medicine; Visit Provider Internal Medicine Endocrinology, Diabetes & Metabolism | DX: E11.65 Type 2 diabetes mellitus with hyperglycemia (principal); E78.5 Hyperlipidemia, unspecified; Z79.4 Long term (current) use of insulin | CPT/HCPCS: 82947; 83036; 99212 ==

== ENCOUNTER 2023-10-01 13:54 | Outpatient (AMB) | payer OTHER, SELFPAY ==
--- NOTE | 2023-10-01 14:20 | A.OFFVIS_ITS ---
Intake Intake Visit Reasons: DM-CONFIRMED Operations Inspector Required: Yes Operations Inspector Language: Air Sealing Technician Name: Esteban [id number] Information Interpreted: non-clinical & clinical Accompanied by: Self / Same As Patient Allergies No Known Allergies Allergy (Verified 09/17/23 09:22) HPI Comprehensive Diabetes Asmnt Most Recent Diabetes Results: No Data to Display [facility] Medical History Foot pain, bilateral Hyperhidrosis Neuropathy Diabetes mellitus with hyperglycemia Type 2 diabetes mellitus with diabetic polyneuropathy Essential hypertension Hyperlipidemia LDL goal <100 Obesity due to excess calories BMI 36.0-36.9,adult Surgical History Hx of foot surgery Hx of tonsillectomy Family History Father No problems noted. Mother Diabetes mellitus Social History Household Members: Family Housing: Apartment Alcohol intake: former Patient Tobacco Use Status: Current everyday Tobacco user Tobacco use type: Cigarette Cigarettes Per Day: 2 e-Cigarette/Vaping Use: Never Used Second Hand Smoke Exposure: No Substance Use Type: Crack/Cocaine service: No Current occupational status: unemployed Cognitive needs: No Hearing needs: No Vision needs: No Assessment & Plan Assessment & Plan (1) Type 2 diabetes mellitus, with long-term current use of insulin: Code(s): E11.9 - Type 2 diabetes mellitus without complications; Z79.4 - watermelon inspector (current) use of insulin Plan: Patient received incorrect Brandy sensors from [facility] Called pharmacy to initiate change in prescription Patient will reschedule appointment for 2 weeks Coding Level of Care Code Est Pt Level 1 (46952) Diagnoses Type 2 diabetes mellitus, with long-term current use of insulin E11.9; Z79.4
== END 2023-10-01 14:23 | disposition home or self-care (01) ==
PROVIDERS: PCP Internal Medicine; Visit Provider Registered Nurse Diabetes Educator
DX: E11.9 Type 2 diabetes mellitus without complications (principal); Z79.4 Long term (current) use of insulin

== ENCOUNTER → 2023-10-01 13:54 | Outpatient (BNVA) | payer OTHER, SELFPAY | PROVIDERS: PCP Internal Medicine; Visit Provider Registered Nurse Diabetes Educator | DX: E11.65 Type 2 diabetes mellitus with hyperglycemia (principal); E11.42 Type 2 diabetes mellitus with diabetic polyneuropathy; I10 Essential (primary) hypertension; E66.09 Other obesity due to excess calories; E78.5 Hyperlipidemia, unspecified; Z68.36 Body mass index [BMI] 36.0-36.9, adult; Z79.4 Long term (current) use of insulin | CPT/HCPCS: 99211 ==

== ENCOUNTER 2023-11-28 10:13 | Outpatient (AMB) | payer OTHER, SELFPAY ==
[2023-11-28 10:33] VITALS: BP 122/70; PULSE 81; TEMP 36.1; O2SAT 96; BMI 40.4
--- NOTE | 2023-11-28 10:33 | MHC.OFFWIV ---
Intake Vital Signs 11/28/23 10:33 Height 6 ft 1 in Weight 306 lb BMI 40.4 BP 122/70 Blood Pressure Location Lt brachial Position Sitting Pulse 81 Pulse Source Pulse Oximeter Temp 97.0 F Temp Source Temporal Artery Scan Pulse Oximetry (%) 96 Oxygen Delivery Method Room Air Intake Visit Reasons: EP Dark spots both legs diabetic Intake Note: pt is here today for dark spots both legs diabetic started 3 months and cant make a fist Patient Tobacco Use Status: Current everyday Tobacco user Allergies No Known Allergies Allergy (Verified 11/28/23 10:33) Do you need a note to return to daycare/school/sports/work: No HPI HPI Comments History of Present Illness Details 48 male patient presents to walk in clinic today with c/o Dark spots on both lower legs x 3 months. Pt diabetic with hyperglycemia. [facility] Medical History Foot pain, bilateral Hyperhidrosis Neuropathy Diabetes mellitus with hyperglycemia Type 2 diabetes mellitus with diabetic polyneuropathy Essential hypertension Hyperlipidemia LDL goal <100 Obesity due to excess calories BMI 36.0-36.9,adult Surgical History Hx of foot surgery Hx of tonsillectomy Family History Father No problems noted. Mother Diabetes mellitus Social History Household Members: Family Housing: Apartment Alcohol intake: former Patient Tobacco Use Status: Current everyday Tobacco user Tobacco use type: Cigarette Cigarettes Per Day: 2 e-Cigarette/Vaping Use: Never Used Second Hand Smoke Exposure: No Substance Use Type: Crack/Cocaine service: No Current occupational status: unemployed Cognitive needs: No Hearing needs: No Vision needs: No Review of Systems Const All systems reviewed & are unremarkable except as noted in HPI and below Physical Exam Vital Signs: Last Vital Signs Temp 97.0 F 11/28/23 10:33 Pulse 81 11/28/23 10:33 BP 122/70 11/28/23 10:33 Pulse Ox 96 11/28/23 10:33 Oxygen Delivery Method Room Air 11/28/23 10:33 BMI result Body Mass Index 40.4 Skin General skin exam: dry skin, erythema and lichenification Hair: scarring alopecia Assessment & Plan Assessment & Plan (1) Venous insufficiency (chronic) (peripheral): Code(s): I87.2 - Venous insufficiency (chronic) (peripheral) Plan: - Chronic DM - Needs f/u with PCP - Needs to manage DM well (2) Venous dermatitis: Code(s): I87.2 - Venous insufficiency (chronic) (peripheral) Plan: - Chronic DM - Needs f/u with PCP - Needs to manage DM well Plan - Chronic DM - Needs f/u with PCP - Needs to manage DM well Coding Level of Care Code Est Pt Level 2 (15167) Diagnoses Venous insufficiency (chronic) (peripheral) I87.2 Venous dermatitis I87.2 Time Spent (min) 10
== END 2023-11-28 11:30 | disposition home or self-care (01) ==
PROVIDERS: PCP Internal Medicine; Visit Provider Nurse Practitioner Family
DX: I87.2 Venous insufficiency (chronic) (peripheral) (principal); E11.42 Type 2 diabetes mellitus with diabetic polyneuropathy
CPT/HCPCS: 99212

== ENCOUNTER 2023-12-24 14:01 | Outpatient (AMB) | payer OTHER, SELFPAY ==
[2023-12-24 14:10] VITALS: BP 118/86; BMI 40.2
--- NOTE | 2023-12-24 14:10 | MHC.PC.OV ---
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 Accompanied by: Self / Same As Patient Allergies No Known Allergies Allergy (Verified 12/24/23 14:22) Medication List - Last Reconciled 12/24/23 by Skylar Luna MD alcohol swabs 1 pad topical QID atorvastatin 40 mg PO BEDTIME 90 days blood sugar diagnostic (FreeStyle Lite Strips) 1 strip miscellaneous QID blood-glucose meter (FreeStyle Lite Meter kit) As directed empagliflozin (Jardiance) TAKE 1 TABLET BY MOUTH EVERY DAY flash glucose scanning reader (Orca SystemsStyle Brandy 2 [place]) As directed flash glucose sensor (FreeStyle Brandy 2 Sensor kit) As directed change every 14 days gabapentin 300 mg PO TID 30 days ibuprofen 800 mg PO Q8H PRN insulin regular hum U-500 conc (Humulin R U-500 (Conc) Insulin Kwikpen) 95 units before breakfast and 75 units before supper subcutaneously; lancets (FreeStyle Lancets) Use 1 lancet four times a day lidocaine-prilocaine 2.5-2.5 % 1 appl topical ONCE metformin 1,000 mg (2 x 500 mg) PO BID omeprazole 20 mg PO QAM 90 days pen needle, diabetic (BD Ultra-Fine Earnestine Pen Needle) As directed two daily polyethylene glycol 3350 (Miralax) 238 grams PO ONCE semaglutide (Ozempic) 0.25 mg (0.368 mL) subcut QWEEK 90 days Tobacco use date assessed: 12/24/23 Dental Screening Dental Screen Date: 12/24/23 Did you have a dental visit in the last 12 months?: No Did you have a dental problem in the last 6 months where you did not have access to dental care?: No Was dental information given to patient?: Patient has dentist HPI HPI Comments History of Present Illness Details This is a 48-year-old male with diabetes mellitus type 2 on long-term current use of insulin, hyperlipidemia, chronic painful diabetic neuropathy, peripheral vascular disease and moderate major depression that comes today complaining of burning like pain in feet more prominent in the right that has been present for over 6 months. Gabapentin mildly relieved the pain but cause a little bit of sleepiness. I will increase gabapentin. A1c not on goal and I will increase Ozempic. Blood pressure stable. Lipid panel will be order an his LDL goal should be less than 70. Has hyperpigmentation in lower limbs and complains of call legs and will be referred to vascular surgery due to peripheral vascular disease. Has moderate depression with no suicidal thoughts and not interested in treatment at the moment. Has colonoscopy this month. As per patient has bariatric surgery for his morbid obesity next month. [facility] Medical History Foot pain, bilateral Hyperhidrosis Neuropathy Diabetes mellitus with hyperglycemia Type 2 diabetes mellitus with diabetic polyneuropathy Essential hypertension Hyperlipidemia LDL goal <100 Obesity due to excess calories BMI 36.0-36.9,adult Surgical History Hx of foot surgery Hx of tonsillectomy Family History Father No problems noted. Mother Diabetes mellitus Social History Household Members: Family Housing: Apartment Alcohol intake: former Patient Tobacco Use Status: Current someday Tobacco user Tobacco use type: Cigarette Cigarettes Per Day: 2 e-Cigarette/Vaping Use: Never Used Second Hand Smoke Exposure: No Substance Use Type: Crack/Cocaine service: No Current occupational status: unemployed Cognitive needs: No Hearing needs: No Vision needs: No Questionnaire PHQ-9 Over the last 2 weeks, how often have you been bothered by any of the following problems? 1. Little interest or pleasure in doing things: nearly every day 2. Feeling down, depressed, or hopeless: nearly every day 3. Trouble falling or staying asleep, or sleeping too much: nearly every day 4. Feeling tired or having little energy: nearly every day 5. Poor appetite or overeating: nearly every day 6. Feeling bad about yourself - or that you are a failure or have let yourself or your family down: nearly every day 7. Trouble concentrating on things, such as reading the newspaper or watching television: not at all 8. Moving or speaking so slowly that other people could have noticed. Or the opposite - being so fidgety or restless that you have been moving around a lot more than usual: nearly every day 9. Thoughts that you would be better off or of hurting yourself in some way: nearly every day Total score: 24 Depression Screening Interpretation: Positive (no suicidal thoughts) Depression Screening Follow-up: Existing condition Depression Screening Done: Yes 93248 - PHQ-9 Billing: Yes Source: Developed by Drs. Jayson Hayden, Shanelle Kee, Chico Ernandez and colleagues, with an educational manny from [employer]. Thrive Questionnaire Date Thrive assessed: 12/24/23 I am a: Patient What is your living situation today?: I have a steady place to live Within the past 12 months, did the food you bought not last and you didn't have the money to get more?: Never true Within the past 12 months, did you worry whether your food would run out before you got money to buy more?: Never true Do you have trouble paying for medicines?: No Do you have trouble getting transportation to medical appointments?: No Do you have trouble paying your heating and electricity bill?: No Do you have trouble taking care of your child, family member or friend?: No Do you have trouble with day-to-day activities such as bathing, preparing meals, shopping, managing finances, etc.?: No Are you currently unemployed and looking for a job?: No Are you interested in more education?: No Please select the resources that you would like help with: None Currently or been in a relationship where the following occur: no concerns reported THRIVE Score: 0 AUDIT C Alcohol Use Questionnaire (AUDIT-C) 1. How often do you have a drink containing alcohol?: Never Total Score: 0 ROB-7 AMB Questionnaire ROB-7 Date ROB - 7 assessed: 12/24/23 Feeling nervous, anxious, or on edge: 3 = Nearly every day Not being able to stop or control worryin = Nearly every day Worrying too much about different things: 3 = Nearly every day Trouble relaxin = Nearly every day Being so restless that it is hard to sit still: 0 = Not at all Becoming easily annoyed or irritable: 3 = Nearly every day Feeling afraid as if something awful might happen: 0 = Not at all Total ROB-7 score (0-4 normal; 5-9 mild; 10-14 moderate; 15-21 severe): 15 Source: Developed by Drs. Jayson Hayden, Shanelle Kee, Chico Ernandez and colleagues, with an educational manny from [employer]. ROB-7 Assessment Billing ROB-7 Assessment Tool: ROB-7 Assessment 54866 Review of Systems Const All systems reviewed & are unremarkable except as noted in HPI and below Eyes Reports no additional complaints, Denies change in vision and Denies other visual disturbances Card Denies chest pain at rest, Denies chest pain with activity, Denies edema, Denies irregular heart rhythm, Denies claudication, Denies dyspnea, Denies dyspnea on exertion, Denies orthopnea, Denies paroxysmal nocturnal dyspnea and Denies slow heart rate Resp Denies cough, Denies dyspnea and Denies dyspnea on exertion GI Denies abdominal pain, Denies change in bowel habits, Denies excessive flatus, Denies nausea and Denies vomiting Denies urinary hesitancy, Denies urinary incontinence and Denies urinary urgency Musc Denies abnormal gait, Denies atrophy, Denies deformity, Reports arthralgias, Denies limited range of motion and Reports numbness Skin/Breast Denies bleeding lesions, Denies changing lesions and Denies rash Neuro Denies abnormal gait, Denies lack of coordination and Reports numbness Physical exam (Primary Care) Vital Signs: Last Vital Signs BP 118/86 12/24/23 14:10 BMI result Body Mass Index 40.2 Tobacco/Smoking Status: Tobacco use Status Tobacco use date assessed 12/24/23 12/24/23 14:20 Patient Tobacco Use Status Current someday Tobacco 12/24/23 14:20 Tobacco use type Cigarette 12/24/23 14:15 e-Cigarette/Vaping Use Never Used 12/24/23 14:15 PHQ-9: PHQ-9 Score PHQ-9: Total score 24 12/24/23 14:20 Depression Screening Interpretation: Positive (no suicidal thoughts) Depression Screening Follow-up: Existing condition Thrive Assessment: Date of Thrive Assessment Date Thrive assessed 12/24/23 12/24/23 14:20 Currently or been in a relationship where the following occur: no concerns reported Eyes General: appearance normal, both eyes and all related structures Eyelids: Yes eyelids normal Conjunctivae: conjunctivae normal Neck Neck: Yes normal visual inspection and Yes supple Resp Effort & Inspection: normal respiratory effort Auscultation: clear to auscultation bilaterally Cardio Jugular venous distension: no JVD Rate: regular rate Rhythm: regular rhythm Heart sounds: S1 normal heart sound present and S2 normal heart sound present Skin Other: hyperpigmented lower limbs Extrem General: Yes full ROM Results AMB Hemoglobin A1c AMB Hemoglobin A1c 7.6 % Last Edit by SAEED Linder on 12/24/23 14:25 Assessment and Plan Assessment & Plan (1) Type 2 diabetes mellitus, with long-term current use of insulin: Code(s): E11.9 - Type 2 diabetes mellitus without complications; Z79.4 - correction (current) use of insulin Plan: Continue insulin. Continue Jardiance. Increase Ozempic. A1c goal is equal or less than 7%. (2) Peripheral vascular disease: Code(s): I73.9 - Peripheral vascular disease, unspecified Plan: Referred to vascular surgery. (3) Morbid obesity with BMI of 40.0-44.9, adult: Code(s): E66.01 - Morbid (severe) obesity due to excess calories; Z68.41 - Body mass index [BMI] 40.0-44.9, adult Plan: Bariatric surgery schedule next month as per patient. (4) Hyperlipidemia LDL goal <70: Code(s): E78.5 - Hyperlipidemia, unspecified Plan: Continue statins. Repeat lipid panel. LDL goal is less than 70. (5) Moderate recurrent major depression: Code(s): F33.1 - Major depressive disorder, recurrent, moderate Plan: Declines remember for now. No suicidal thoughts. (6) Chronic painful diabetic neuropathy: Code(s): E11.40 - Type 2 diabetes mellitus with diabetic neuropathy, unspecified Plan: Increase gabapentin. Orders: Orders AMB Hemoglobin A1c Today E11.9 - Type 2 diabetes mellitus without complications, Z79.4 - correction (current) use of insulin Lipid Panel Today E78.5 - Hyperlipidemia, unspecified Microalbumin, Random (w Creat) Today E11.9 - Type 2 diabetes mellitus without complications Vitamin D 25-OH Total Today E55.9 - Vitamin D deficiency, unspecified Comprehensive [place]. Panel Fast Today E11.9 - Type 2 diabetes mellitus without complications, Z79.4 - correction (current) use of insulin Referrals Vascular Surgery Referral I73.9 - Peripheral vascular disease, unspecified Ophthalmology Referral E11.42 - Type 2 diabetes mellitus with diabetic polyneuropathy Medications: New gabapentin 400 mg PO TID 30 days 90 caps 0RF semaglutide (Ozempic) 0.5 mg (0.736 mL) subcut QWEEK 30 days 3.68 mL 3RF Refilled empagliflozin (Jardiance) TAKE 1 TABLET BY MOUTH EVERY DAY 90 tabs 5RF E11.42 - Type 2 diabetes mellitus with diabetic polyneuropathy, E11.65 - Type 2 diabetes mellitus with hyperglycemia, Z79.4 - correction (current) use of insulin Discontinued semaglutide (Ozempic) for 4 weeks Discontinued Reason: Patient Completed Course 0.25 mg (0.368 mL) subcut QWEEK 90 days 5.2 mL 2RF E11.65 - Type 2 diabetes mellitus with hyperglycemia gabapentin Discontinued Reason: Patient Completed Course 300 mg PO TID 30 days 90 caps 1RF Coding Level of Care Code Est Pt Level 4 (56577) Diagnoses Type 2 diabetes mellitus, with long-term current use of insulin E11.9; Z79.4 Peripheral vascular disease I73.9 Morbid obesity with BMI of 40.0-44.9, adult E66.01; Z68.41 Hyperlipidemia LDL goal <70 E78.5 Moderate recurrent major depression F33.1 Chronic painful diabetic neuropathy E11.40 Additional Codes ROB-7 Assessment Billing - ROB-7 Assessment Tool: ROB-7 Assessment 81534 ([id number]) Time Spent (min) 24
== END 2023-12-24 14:33 | disposition home or self-care (01) ==
PROVIDERS: PCP Internal Medicine; Visit Provider Internal Medicine
DX: E11.69 Type 2 diabetes mellitus with other specified complication (principal); Z79.4 Long term (current) use of insulin; I73.9 Peripheral vascular disease, unspecified; E66.01 Morbid (severe) obesity due to excess calories; Z68.41 Body mass index [BMI] 40.0-44.9, adult; F33.1 Major depressive disorder, recurrent, moderate; E11.40 Type 2 diabetes mellitus with diabetic neuropathy, unspecified; E78.5 Hyperlipidemia, unspecified
CPT/HCPCS: 83036; 99214

== ENCOUNTER 2024-02-25 15:17 | Outpatient (AMB) | payer OTHER, SELFPAY ==
[2024-02-25 15:18] VITALS: BMI 40.2
--- NOTE | 2024-02-25 15:18 | A.OFFVIS_ITS ---
Vital Signs 02/25/24 15:18 Height 6 ft 1 in Weight 305 lb BMI 40.2 Intake Visit Reasons: Peripheral vascular disease Allergies No Known Allergies Allergy (Verified 02/25/24 15:20) HPI HPI Peripheral vascular disease: Details: Very pleasant 48-year-old gentleman has difficulty ambulating more than 1 block. He has been a long-term diabetic with use of insulin. In addition he has chronic painful diabetic neuropathy. He has also been a long-term smoker smoking nearly a pack a day. He now presents for vascular evaluation. Of note he is being maintained on Ozempic [facility] Medical History Foot pain, bilateral Hyperhidrosis Neuropathy Diabetes mellitus with hyperglycemia Type 2 diabetes mellitus with diabetic polyneuropathy Essential hypertension Hyperlipidemia LDL goal <100 Obesity due to excess calories BMI 36.0-36.9,adult Surgical History Hx of foot surgery Hx of tonsillectomy Family History Father No problems noted. Mother Diabetes mellitus Social History Household Members: Family Housing: Apartment Alcohol intake: former Patient Tobacco Use Status: Current someday Tobacco user Tobacco use type: Cigarette Cigarettes Per Day: 2 e-Cigarette/Vaping Use: Never Used Second Hand Smoke Exposure: No Substance Use Type: Crack/Cocaine service: No Current occupational status: unemployed Cognitive needs: No Hearing needs: No Vision needs: No Review of Systems Const All systems reviewed & are unremarkable except as noted in HPI and below Reports no additional complaints ENT Reports Normal hearing present Card Denies chest pain, Denies chest pain at rest, Denies chest pain with activity and Denies pedal edema Resp Denies cough GI Denies abdominal pain Musc Denies abnormal gait, Denies muscle cramps and Denies radiating pain into limb Skin/Breast Denies skin ulcer and Denies wounds Neuro Reports Normal hearing present and Denies abnormal gait Psych Reports no additional complaints Physical Exam Vital Signs: BMI result Body Mass Index 40.2 Const General: cooperative, healthy appearing and comfortable Orientation/consciousness: oriented to person, oriented to place and oriented to time HEENT Head: Yes normal to inspection Neck Neck: Yes normal visual inspection Carotids: no bruits Chest Chest palpation & inspection: normal inspection of the chest Resp Effort & Inspection: normal respiratory effort and able to speak in complete sentences Auscultation: clear to auscultation bilaterally, no crackles, no rales, no rhonchi and no wheezes Cardio Other: Bilateral DP signals Rate: regular rate Rhythm: regular rhythm Heart sounds: S1 normal heart sound present and S2 normal heart sound present Bruits: no carotid bruits Peripheral pulses: Peripheral pulses 2+ throughout GI Inspection: Yes normal to inspection Skin Wounds: no wounds Hair: normal Neuro General: oriented to person, oriented to place and oriented to time Cranial nerves: Yes CN's II-XII intact bilaterally and Yes Normal hearing present Cognition (Neuro): normal cognition Motor exam (neuro): 5/5 motor strength present throughout Extrem Other: venous exam: No significant superficial varicosities or spider telangiectasias, minimal edema General: No clubbing, No cyanosis and No edema Psych Appearance: grossly normal Mental Status: mental status grossly normal Speech and movement: Normal speech and movement present Quality Reporting (2019) Adult ([facility] 138/12/26/68) Smoking risk assessment performed?: Yes Patient Tobacco Use Status: Current someday Tobacco user Assessment & Plan Assessment & Plan (1) PAD (peripheral artery disease): Code(s): I73.9 - Peripheral vascular disease, unspecified Category: Medical Plan: Patient has lower extremity pain. Unclear etiology of this as it may be multifactorial. I do believe he has a strong neurogenic component of this as he does describe foot pain which is more related to neuropathy secondary to his diabetes. In addition the smoking diabetes and nonpalpable pulses leads me to believe he has an element of arterial disease as well. I have taken the liberty of ordering noninvasive arterial testing. He will follow up with us after testing. Thank you for allowing us to assist in his care. If there are any questions or concerns please do not hesitate to contact us Orders: Orders US arterial duplex LE BI 1 Week I73.9 - Peripheral vascular disease, unspecified Coding Level of Care Code New Pt Level 4 (56529) Diagnoses PAD (peripheral artery disease) I73.9
== END 2024-02-25 15:37 | disposition home or self-care (01) ==
PROVIDERS: PCP Internal Medicine; Visit Provider Surgery Vascular Surgery
DX: I73.9 Peripheral vascular disease, unspecified (principal)
CPT/HCPCS: 99213

== ENCOUNTER → 2024-02-25 15:17 | Outpatient (BNVA) | payer OTHER, SELFPAY | PROVIDERS: PCP Internal Medicine; Visit Provider Surgery Vascular Surgery | DX: I73.9 Peripheral vascular disease, unspecified (principal); F17.210 Nicotine dependence, cigarettes, uncomplicated | CPT/HCPCS: 99212 ==

== ENCOUNTER 2024-03-24 12:54 | Outpatient (REF) | payer OTHER, SELFPAY ==
--- NOTE | ~2024-03-24 | US_ITS ---
EXAMINATION: Noninvasive assessment of the bilateral lower extremities with ARTERIAL DUPLEX and ANKLE BRACHIAL INDICES (ABIs). CLINICAL INFORMATION: Peripheral vascular disease TECHNIQUE: Duplex Doppler techniques with waveform analysis and measurement of velocities in the bilateral common femoral, profunda femoris, superficial femoral, popliteal and tibial arteries were performed. Additionally, ankle pulse volume recordings, ankle pressure measurements and ankle brachial indices were obtained of the lower extremity arterial system bilaterally. The study was performed only at rest. COMPARISON: None FINDINGS: DIRECT DUPLEX DOPPLER FINDINGS: RIGHT LEG: Common femoral artery: 66.1 cm/s, phasicity: Biphasic Profunda femoris artery: 58.5 cm/s, phasicity: Biphasic Superficial femoral artery (proximal): 86.8 cm/s, phasicity: Biphasic Superficial femoral artery (mid): 82.3 cm/s, phasicity: Biphasic Superficial femoral artery (distal): 53.7 cm/s, phasicity: Biphasic Popliteal artery: 117 cm/s, phasicity: Triphasic Posterior tibial artery: 60.0 cm/s, phasicity: Biphasic Peroneal artery: 32.4 cm/s, phasicity: Triphasic Anterior tibial artery: 42 cm/s, phasicity: Biphasic Dorsalis pedis artery: 23.1 cm/s, phasicity:Biphasic LEFT LEG: Common femoral artery: 90.6 cm/s, phasicity: Biphasic Profunda femoris artery: 59.5 cm/s, phasicity: Biphasic Superficial femoral artery (proximal): 73.1 cm/s, phasicity: Biphasic Superficial femoral artery (mid): 70.8 cm/s, phasicity: Biphasic Superficial femoral artery (distal): 81.7 cm/s, phasicity: Biphasic Popliteal artery: 90.2 cm/s, phasicity: Biphasic Posterior tibial artery: 50.2 cm/s, phasicity: Biphasic Peroneal artery: 52.1 cm/s, phasicity: Biphasic Anterior tibial artery: 46.4 cm/s, phasicity: Biphasic Dorsalis pedis artery: 29.5 cm/s, phasicity: Biphasic ANKLE-BRACHIAL INDEX: Right: 1.01? Left: 0.97 ANKLE PRESSURES: Right: PT 139, DP 118 Left: PT?133, DP?160 ANKLE PVR WAVEFORMS: Right: Abnormal Left: Abnormal US/US arterial duplex BI w/ MARIBELL IMPRESSION: Right leg: Normal ankle brachial index. Patent arterial flow throughout the right lower extremity on duplex ultrasound Left leg: Normal ankle brachial index. Patent arterial flow throughout the right lower extremity on duplex ultrasound MARIBELL Reference: - >1.4 = calcified vessels - 0.9 - 1.4 = normal - no significant arterial disease - 0.7 - 0.89 = mild peripheral arterial disease - 0.51 - 0.69 = moderate peripheral arterial disease - ? 0.50 = severe peripheral arterial disease - < .30 = critical arterial disease
== END 2024-03-24 12:55 | disposition home or self-care (01) ==
LOC: HO.US 12:54
PROVIDERS: PCP Internal Medicine; Visit Provider Surgery Vascular Surgery
DX: I73.9 Peripheral vascular disease, unspecified (principal)
CPT/HCPCS: 93922; 93925

== ENCOUNTER 2024-03-31 13:03 | Outpatient (AMB) | payer OTHER, SELFPAY ==
--- NOTE | 2024-03-31 13:05 | A.OFFVIS_ITS ---
Intake Visit Reasons: f/u s/p Arterial US Intake Note: Patient presents for follow up 03/24 arterial US. Patient states he has bilateral foot and toe pain. Accompanied by: Self / Same As Patient Allergies No Known Allergies Allergy (Verified 03/31/24 13:08) HPI HPI f/u s/p Arterial US: Details: Pleasant 49-year-old gentleman presents for follow-up regarding lower extremity pain. Has been a continued source discomfort for him. He has undergone noninvasive arterial testing and now presents for follow-up. Upon further discussion with him he reports that it is more so regarding his feet. [facility] Medical History Foot pain, bilateral Hyperhidrosis Neuropathy Diabetes mellitus with hyperglycemia Type 2 diabetes mellitus with diabetic polyneuropathy Essential hypertension Hyperlipidemia LDL goal <100 Obesity due to excess calories BMI 36.0-36.9,adult Surgical History Hx of foot surgery Hx of tonsillectomy Family History Father No problems noted. Mother Diabetes mellitus Social History Household Members: Family Housing: Apartment Alcohol intake: former Patient Tobacco Use Status: Current someday Tobacco user Tobacco use type: Cigarette Cigarettes Per Day: 2 e-Cigarette/Vaping Use: Never Used Second Hand Smoke Exposure: No Substance Use Type: Crack/Cocaine service: No Current occupational status: unemployed Cognitive needs: No Hearing needs: No Vision needs: No Review of Systems Const All systems reviewed & are unremarkable except as noted in HPI and below Reports no additional complaints ENT Reports Normal hearing present Card Denies chest pain, Denies chest pain at rest, Denies chest pain with activity and Denies pedal edema Resp Denies cough GI Denies abdominal pain Musc Denies abnormal gait, Denies muscle cramps and Denies radiating pain into limb Skin/Breast Denies skin ulcer and Denies wounds Neuro Reports Normal hearing present and Denies abnormal gait Psych Reports no additional complaints Physical Exam Const General: cooperative, healthy appearing and comfortable Orientation/consciousness: oriented to person, oriented to place and oriented to time HEENT Head: Yes normal to inspection Neck Neck: Yes normal visual inspection Carotids: no bruits Chest Chest palpation & inspection: normal inspection of the chest Resp Effort & Inspection: normal respiratory effort and able to speak in complete sentences Auscultation: clear to auscultation bilaterally, no crackles, no rales, no rhonchi and no wheezes Cardio Rate: regular rate Rhythm: regular rhythm Heart sounds: S1 normal heart sound present and S2 normal heart sound present Bruits: no carotid bruits Peripheral pulses: Peripheral pulses 2+ throughout GI Inspection: Yes normal to inspection Skin Wounds: no wounds Hair: normal Neuro General: oriented to person, oriented to place and oriented to time Cranial nerves: Yes CN's II-XII intact bilaterally and Yes Normal hearing present Cognition (Neuro): normal cognition Motor exam (neuro): 5/5 motor strength present throughout Extrem Other: venous exam: No significant superficial varicosities or spider telangiectasias, minimal edema General: No clubbing, No cyanosis and No edema Psych Appearance: grossly normal Mental Status: mental status grossly normal Speech and movement: Normal speech and movement present Quality Reporting (2019) Adult ([facility] 138/12/26/68) Smoking risk assessment performed?: Yes Patient Tobacco Use Status: Current someday Tobacco user Results Reviewed Results Reviewed: Noninvasive arterial testing dated 03/24/2024 demonstrates MARIBELL on the right of 1.01 and on the left of 0.97. Written report and images were reviewed. Assessment & Plan Assessment & Plan (1) PAD (peripheral artery disease): Code(s): I73.9 - Peripheral vascular disease, unspecified Category: Medical Plan: In short his arterial testing appears to be within normal limits. I do not believe that it is a vascular source of his pain and discomfort. I do think that he does require podiatry evaluation possible proper foot inserts. In addition there may be an element of neuropathy as well due to his diabetes. This was discussed in detail with him. He will follow up with us on an as- needed basis. Thank you for allowing us to assist in his care. If there are any questions or concerns please do not hesitate to contact us Coding Level of Care Code Est Pt Level 4 (07975) Diagnoses PAD (peripheral artery disease) I73.9
== END 2024-03-31 13:45 | disposition home or self-care (01) ==
PROVIDERS: PCP Internal Medicine; Visit Provider Surgery Vascular Surgery
DX: I73.9 Peripheral vascular disease, unspecified (principal)
CPT/HCPCS: 99213

== ENCOUNTER → 2024-03-31 13:03 | Outpatient (BNVA) | payer OTHER, SELFPAY | PROVIDERS: PCP Internal Medicine; Visit Provider Surgery Vascular Surgery | DX: I73.9 Peripheral vascular disease, unspecified (principal) | CPT/HCPCS: 99212 ==

== ENCOUNTER 2024-06-01 13:51 | Outpatient (AMB) | payer OTHER, SELFPAY ==
[2024-06-01 14:01] VITALS: BP 122/82; PULSE 64; BMI 39.2
--- NOTE | 2024-06-01 14:01 | A.OFFVIS_ITS ---
Vital Signs 06/01/24 14:01 Height 6 ft 1 in Weight 296 lb 15.402 oz BMI 39.2 BP 122/82 Blood Pressure Location Lt brachial Position Sitting Pulse 64 Pulse Source Pulse Oximeter Intake Visit Reasons: DM 2 Intake Note: New patient presents today for D2MT. Last Diabetic Eye exam: Patient has never had a vision test. Last Podiatry Visit:Doesn't have one. Random Glucose:170 mg/dl HgA1c: 8.1% Professor Of Philosophy Required: Yes Professor Of Philosophy Language: Filtering Machine Tender Services: Professor Of Philosophy Present Professor Of Philosophy Name: Leni Information Interpreted: non-clinical & clinical Accompanied by: Self / Same As Patient Allergies No Known Allergies Allergy (Verified 06/01/24 14:37) HPI HPI DM 2: Details: Patient is a 49-year-old male with a significant past medical history of uncontrolled type 2 diabetes with polyneuropathy, hypertension, obesity, hyperlipidemia, peripheral vascular disease, and depression presenting today for a diabetic follow-up. Endo: A1c today is 8.1. He is currently on Humulin U500, Ozempic 0.5 mg once a week, Jardiance 25 mg, metformin 1000 mg twice a day -He stopped the ozempic due to nausea. -He adjusts his insulin himself and gives 70 for breakfast, 80 for lunch and up to 100 for dinner. He states that his sensor fell off a few weeks ago and he does not have testing supplies. He states his neighbor checked his blood sugar last week because he felt weak and shaky and his glucose was 34. He treated it with a cup of orange juice. He does have a history of peripheral neuropathy thought to be related to his diabetes and he states that it is painful. It was recommended by the vascular surgeon that he follows with a database management system specialist. He really would like a referral today. REPLACED BY [facility] Medical History Foot pain, bilateral Hyperhidrosis Neuropathy Diabetes mellitus with hyperglycemia Type 2 diabetes mellitus with diabetic polyneuropathy Essential hypertension Hyperlipidemia LDL goal <100 Obesity due to excess calories BMI 36.0-36.9,adult Surgical History Hx of foot surgery Hx of tonsillectomy Family History Father No problems noted. Mother Diabetes mellitus Social History Household Members: Family Housing: Apartment Alcohol intake: former Patient Tobacco Use Status: Current someday Tobacco user Tobacco use type: Cigarette Cigarettes Per Day: 2 e-Cigarette/Vaping Use: Never Used Second Hand Smoke Exposure: No Substance Use Type: Crack/Cocaine service: No Current occupational status: unemployed Cognitive needs: No Hearing needs: No Vision needs: No Physical Exam Vital Signs: Last Vital Signs Pulse 64 06/01/24 14:01 BP 122/82 06/01/24 14:01 BMI result Body Mass Index 39.2 Const Orientation/consciousness: patient oriented x3 Neck Neck: Yes no lymphadenopathy Thyroid: Thyroid normal Carotids: no bruits Resp Auscultation: clear to auscultation bilaterally Cardio Rate: regular rate Rhythm: regular rhythm Heart sounds: S1 normal heart sound present and S2 normal heart sound present Peripheral pulses: dorsalis pedis present Neuro General: patient oriented x3, gait normal and no focal motor deficits Extrem Other: Monofilament sensation intact bilaterally. Vibratory sensation intact bilaterally. Skin intact. General: Yes normal to inspection Results AMB Hemoglobin A1c AMB Hemoglobin A1c 8.1 % Last Edit by SAEED Miller on 06/01/24 14:52 Quality Reporting (2019) Adult ([facility] ) Smoking risk assessment performed?: Yes Patient Tobacco Use Status: Current someday Tobacco user Results Reviewed Results Reviewed: Laboratory Last Values Glucose (Clinic) 170 mg/dL (60-115) H 06/01/24 14:42 Hgb A1c (Clinic) 8.1 % (4.0-6.0) H 06/01/24 14:10 Assessment & Plan Assessment & Plan (1) Type 2 diabetes mellitus with diabetic polyneuropathy: Code(s): E11.42 - Type 2 diabetes mellitus with diabetic polyneuropathy Category: Medical Qualifiers: Diabetes mellitus senior living insulin use: with senior living use Qualified Code(s): E11.42 - Type 2 diabetes mellitus with diabetic polyneuropathy; Z79.4 - lobsterman (current) use of insulin Plan: Discussed the importance of compliance with regimen and monitoring his blood sugars with a glucometer. We discussed the risks associated with uncontrolled type 2 diabetes and the risk of hypoglycemia especially with this much insulin and not having any testing supplies. I have refilled testing supplies and provided glucose tabs. Advised patient to follow-up in 1 month to be reassessed. Sooner if needed. (2) Diabetes mellitus with hyperglycemia: Code(s): E11.65 - Type 2 diabetes mellitus with hyperglycemia Category: Medical Qualifiers: Diabetes mellitus type: type 2 Diabetes mellitus senior living insulin use: with intermediate school teacher use Qualified Code(s): E11.65 - Type 2 diabetes mellitus with hyperglycemia; Z79.4 - nursing home (current) use of insulin Plan: As above. (3) Chronic painful diabetic neuropathy: Code(s): E11.40 - Type 2 diabetes mellitus with diabetic neuropathy, unspecified Category: Medical Plan: Referral to Podiatry. Orders: Orders AMB Hemoglobin A1c Today E11.9 - Type 2 diabetes mellitus without complications, Z13.9 - Encounter for screening, unspecified, Z79.4 - nursing home (current) use of insulin Referrals Podiatry Referral E11.40 - Type 2 diabetes mellitus with diabetic neuropathy, unspecified Medications: New glucose (Dex4 Glucose) until symptoms of low blood sugar are controlled 16 grams (4 x 4 gram) PO Q15M PRN 100 tabs 0RF hypoglycemia blood-glucose sensor (FreeStyle Brandy 3 Sensor device) Apply every 14 days As directed 2 ea 11RF E11.9 - Type 2 diabetes mellitus without complications, Z79.4 - lobsterman (current) use of insulin blood-glucose meter,continuous (FreeStyle Brandy 3 [place]) Use daily As directed to monitor blood glucose 1 ea 0RF Refilled blood sugar diagnostic (FreeStyle Lite Strips) 1 strip miscellaneous QID 100 strips 11RF E11.42 - Type 2 diabetes mellitus with diabetic polyneuropathy Discontinued flash glucose sensor (FreeStyle Brandy 2 Sensor kit) Discontinued Reason: Doctor's Order As directed change every 14 days 2 ea 5RF flash glucose scanning reader (FreeStyle Brandy 2 [place]) Discontinued Reason: Duplicate As directed 1 ea 4RF Coding Level of Care Code Est Pt Level 4 (66447) Diagnoses Type 2 diabetes mellitus with diabetic polyneuropathy, with long-term current use of insulin E11.42; Z79.4 Diabetes mellitus senior living insulin use: with senior living use Type 2 diabetes mellitus with hyperglycemia, with long-term current use of insulin E11.65; Z79.4 Diabetes mellitus type: type 2 Diabetes mellitus senior living insulin use: with senior living use Chronic painful diabetic neuropathy E11.40
[2024-06-01 14:46] LABS: Glucose, Whole Blood 170 mg/dL (60-115)
== END 2024-06-01 15:14 | disposition home or self-care (01) ==
PROVIDERS: PCP Internal Medicine; Visit Provider Physician Assistant
DX: E11.42 Type 2 diabetes mellitus with diabetic polyneuropathy (principal); Z79.4 Long term (current) use of insulin; E11.65 Type 2 diabetes mellitus with hyperglycemia; E11.40 Type 2 diabetes mellitus with diabetic neuropathy, unspecified; Z13.9 Encounter for screening, unspecified
CPT/HCPCS: 99214

== ENCOUNTER → 2024-06-01 13:51 | Outpatient (BNVA) | payer OTHER, SELFPAY | PROVIDERS: PCP Internal Medicine; Visit Provider Physician Assistant | DX: E11.42 Type 2 diabetes mellitus with diabetic polyneuropathy (principal); E11.65 Type 2 diabetes mellitus with hyperglycemia; E11.40 Type 2 diabetes mellitus with diabetic neuropathy, unspecified; Z79.4 Long term (current) use of insulin | CPT/HCPCS: 82947; 83036; 99212 ==

== ENCOUNTER 2025-07-12 10:39 | Outpatient (AMB) | payer OTHER, SELFPAY ==
--- NOTE | 2025-07-12 10:48 | A.OFFVIS_ITS ---
Vital Signs 07/12/25 10:50 Height 6 ft 1 in Weight 276 lb 7.355 oz BMI 36.5 BP 100/70 Blood Pressure Location Lt brachial Position Sitting Pulse 83 Pulse Source Pulse Oximeter Pulse Oximetry (%) 99 Oxygen Delivery Method Room Air Intake Visit Reasons: T2DM Intake Note: Patient present today for Type 2 Diabetes Mellitus Last Diabetic eye exam: Patient has never had a eye exam and would like a referral. Last Podiatry Visit: Doesn't have one Random Glucose: 234 mg/dl HgA1C: 9.7% Supervisor Dehydrogenation Required: Yes Supervisor Dehydrogenation Language: Shipping And Receiving Weigher Services: Supervisor Dehydrogenation Offered & Declined Accompanied by: Nephew or Niece Allergies No Known Allergies Allergy (Verified 07/12/25 10:53) Medication List - Last Reconciled 07/12/25 by Natacha Michael PA-C alcohol swabs 1 pad topical QID atorvastatin 40 mg PO BEDTIME 90 days blood sugar diagnostic (FreeStyle Lite Strips) 1 strip miscellaneous QID blood-glucose meter (FreeStyle Lite Meter kit) As directed blood-glucose sensor (FreeStyle Brandy 3 Sensor device) Apply every 14 days As directed blood-glucose,ticket sales supervisor,cont (FreeStyle Brandy 3 [place]) Use daily As directed to monitor blood glucose empagliflozin (Jardiance) TAKE 1 TABLET BY MOUTH EVERY DAY gabapentin 400 mg PO TID 30 days glucose (Dex4 Glucose) 16 grams (4 x 4 gram) PO Q15M PRN insulin regular hum U-500 conc (Humulin R U-500 (Conc) Insulin Kwikpen) 95 units before breakfast and 75 units before supper subcutaneously; lancets (FreeStyle Lancets) Use 1 lancet four times a day metformin 1,000 mg (2 x 500 mg) PO BID 30 days pen needle, diabetic (BD Ultra-Fine Earnestine Pen Needle) As directed two daily polyethylene glycol 3350 (Miralax) 238 grams PO ONCE HPI HPI T2DM: Details: Patient is a 50-year-old male with a significant past medical history of uncontrolled type 2 diabetes with polyneuropathy, hypertension, obesity, hyperlipidemia, peripheral vascular disease, and depression presenting today for a diabetic follow-up. with son today who translates Endo: A1c today is 9.7. It was previously 8.1 but he has not been seen in over a year. He also has not seen his PCP in over a year and a half. Up until 2 weeks ago he was on Jardiance 25 mg daily, Humulin U 500 75 units twice a day, metformin 1000 mg twice a day. He was previously prescribed Ozempic but stopped this many months ago due to nausea and vomiting even at low doses. He currently only has access to metformin 1000 mg twice a day. He ran out of insulin and Jardiance a couple of weeks ago. He has been trying very hard with his diet to help control his blood sugars over the last few weeks. He does not have any more test strips at home so has not been checking his blood sugars. He ran out of sensors last month. He did not bring in his reader today with him but states that he does know where it is. -he has been out of humulin U500 70 units twice a day for the last few days and states that he has been out of Jardiance longer closer to 2 weeks -He stopped the ozempic due to nausea. He did not tolerate 1.5 mg of trulicity. It caused nausea and vomiting He has not had any low blood sugars he states in many months He does have a history of peripheral neuropathy thought to be related to his diabetes and never followed with Podiatry last year but would like a referral now. CV: Blood pressure today in the office is 100/70. His cholesterol was previously controlled with atorvastatin 40 mg but has been out of this for the last month or so.. [facility] Medical History Foot pain, bilateral Hyperhidrosis Neuropathy Diabetes mellitus with hyperglycemia Type 2 diabetes mellitus with diabetic polyneuropathy Essential hypertension Hyperlipidemia LDL goal <100 Obesity due to excess calories BMI 36.0-36.9,adult Surgical History Hx of foot surgery Hx of tonsillectomy Family History Father No problems noted. Mother Diabetes mellitus Social History Household Members: Family Housing: Apartment Alcohol intake: former Patient Tobacco Use Status: Current someday Tobacco user Tobacco use type: Cigarette Cigarettes Per Day: 2 e-Cigarette/Vaping Use: Never Used Second Hand Smoke Exposure: No Substance Use Type: Crack/Cocaine service: No Current occupational status: unemployed Cognitive needs: No Hearing needs: No Vision needs: No Physical Exam Vital Signs: Last Vital Signs Pulse 83 07/12/25 10:50 BP 100/70 07/12/25 10:50 Pulse Ox 99 07/12/25 10:50 Oxygen Delivery Method Room Air 07/12/25 10:50 BMI result Body Mass Index 36.5 Const Orientation/consciousness: patient oriented x3 Neck Neck: Yes no lymphadenopathy Thyroid: Thyroid normal Carotids: no bruits Resp Auscultation: clear to auscultation bilaterally Cardio Rate: regular rate Rhythm: regular rhythm Heart sounds: S1 normal heart sound present and S2 normal heart sound present Peripheral pulses: dorsalis pedis present Neuro General: patient oriented x3, gait normal and no focal motor deficits Extrem Other: Skin intact. General: Yes normal to inspection and Yes capillary refill normal Results AMB Hemoglobin A1c AMB Hemoglobin A1c 9.7 % Last Edit by SAEED Miller on 07/12/25 11:27 Results Reviewed Results Reviewed: Laboratory Last Values Glucose (Clinic) 234 mg/dL (60-115) H 07/12/25 10:57 Hgb A1c (Clinic) 9.7 % (4.0-6.0) H 07/12/25 11:00 Laboratory Tests 01/22/23 06/01/24 06/01/24 10:20 14:10 14:42 Glucose (Clinic) 170 H Hgb A1c (Clinic) 8.1 H Triglycerides 291 Cholesterol 221 LDL Cholesterol, Calc 138 HDL Cholesterol 25 Assessment & Plan Assessment & Plan (1) Type 2 diabetes mellitus with diabetic polyneuropathy: Code(s): E11.42 - Type 2 diabetes mellitus with diabetic polyneuropathy Category: Medical Qualifiers: Diabetes mellitus shelter insulin use: with exterminator termite use Qualified Code(s): E11.42 - Type 2 diabetes mellitus with diabetic polyneuropathy; Z79.4 - USP (current) use of insulin Plan: restart jardiance 25 mg daily restart humulin 75 units bid continue metformin 1000 mg bid start mounjaro 2.5 mg weekly Provided him 2 Brandy 3+ sensors in the office. Testing supplies ordered. Discussed the importance of compliance and discuss complications associated with diabetes including but not limited to increased risk of amputation, infection, stroke, heart attack, kidney disease, blindness etc.. Reviewed signs and symptoms of hyperglycemia and hypoglycemia summary require emergent medical treatment Referral to podiatry (2) Essential hypertension: Code(s): I10 - Essential (primary) hypertension Category: Medical Plan: WNL. (3) Hyperlipidemia LDL goal <70: Code(s): E78.5 - Hyperlipidemia, unspecified Category: Medical Plan: We will check lipids and LFTs. Advised to continue with the atorvastatin 40 mg. (4) Morbid obesity with BMI of 40.0-44.9, adult: Code(s): E66.01 - Morbid (severe) obesity due to excess calories; Z68.41 - Body mass index [BMI] 40.0-44.9, adult Category: Medical Plan: Has lost weight this past year with lifestyle modifications. Encouraged him to continue with this Orders: Orders AMB Hemoglobin A1c Today E11.42 - Type 2 diabetes mellitus with diabetic polyneuropathy, Z13.9 - Encounter for screening, unspecified, Z79.4 - exterminator termite (current) use of insulin Lipid Panel Today E11.42 - Type 2 diabetes mellitus with diabetic polyneuropathy, E66.01 - Morbid (severe) obesity due to excess calories, E78.5 - Hyperlipidemia, unspecified, I10 - Essential (primary) hypertension, Z68.41 - Body mass index [BMI] 40.0-44.9, adult, Z79.4 - USP (current) use of insulin Microalbumin, Random (w Creat) Today E11.42 - Type 2 diabetes mellitus with diabetic polyneuropathy, E66.01 - Morbid (severe) obesity due to excess calories, E78.5 - Hyperlipidemia, unspecified, I10 - Essential (primary) hypertension, Z68.41 - Body mass index [BMI] 40.0-44.9, adult, Z79.4 - exterminator termite (current) use of insulin Comprehensive [place]. Panel Fast Today E11.42 - Type 2 diabetes mellitus with diabetic polyneuropathy, E66.01 - Morbid (severe) obesity due to excess calories, E78.5 - Hyperlipidemia, unspecified, I10 - Essential (primary) hypertension, Z68.41 - Body mass index [BMI] 40.0-44.9, adult, Z79.4 - USP (current) use of insulin Medications: New lancets (FreeStyle Lancets) use daily as directed to check blood glucose 100 ea 3RF blood-glucose sensor (FreeStyle Brandy 3 Plus Sensor device) Use daily As directed to monitor glucose 2 ea 5RF E08.29 - Diabetes mellitus due to underlying condition with other diabetic kidney complication, R80.9 - Proteinuria, unspecified, Z79.4 - exterminator termite (current) use of insulin tirzepatide (Mounjaro) for 4 weeks 2.5 mg (0.5 mL) subcut QWEEK 2 mL 3RF Changed From insulin regular hum U-500 conc (Humulin R U-500 (Conc) Insulin Kwikpen) 95 units before breakfast and 75 units before supper subcutaneously; 12 mL 4RF E11.42 - Type 2 diabetes mellitus with diabetic polyneuropathy To insulin regular hum U-500 conc (Humulin R U-500 (Conc) Insulin Kwikpen) 75 units before breakfast and 75 units before supper subcutaneously; 12 mL 4RF E11.42 - Type 2 diabetes mellitus with diabetic polyneuropathy Refilled blood sugar diagnostic (FreeStyle Lite Strips) 1 strip miscellaneous QID 100 strips 11RF E11.42 - Type 2 diabetes mellitus with diabetic polyneuropathy empagliflozin (Jardiance) TAKE 1 TABLET BY MOUTH EVERY DAY 90 tabs 2RF E11.42 - Type 2 diabetes mellitus with diabetic polyneuropathy, E11.65 - Type 2 diabetes mellitus with hyperglycemia, Z79.4 - exterminator termite (current) use of insulin atorvastatin 40 mg PO BEDTIME 90 tabs 1RF 90 days Discontinued blood-glucose sensor (FreeStyle Brandy 3 Sensor device) Discontinued Reason: Doctor's Order Apply every 14 days As directed 2 ea 11RF E11.9 - Type 2 diabetes mellitus without complications, Z79.4 - exterminator termite (current) use of insulin Coding Level of Care Code Est Pt Level 4 (44512) Complex EM visit Add On G2211 Diagnoses Type 2 diabetes mellitus with diabetic polyneuropathy, with long-term current use of insulin E11.42; Z79.4 Diabetes mellitus shelter insulin use: with exterminator termite use Essential hypertension I10 Hyperlipidemia LDL goal <70 E78.5 Morbid obesity with BMI of 40.0-44.9, adult E66.01; Z68.41
[2025-07-12 10:50] VITALS: BP 100/70; PULSE 83; O2SAT 99; BMI 36.5
[2025-07-12 11:01] LABS: Glucose, Whole Blood 234 mg/dL (60-115)
--- OUTSIDE RECORDS SUMMARY | 2025-07-12 12:51 | XMS_ITS | Clinical Summary ---
Author Organization [facility] Address [address] [place] [address] Phone Care Team Providers Care Edi Coordinator Name Role Phone Skylar Luna MD Primary Care Provider [phone] Medications ammonium lactate (AmLactin) 12 % lotion Apply topically if needed for dry skin. 400 g 2 4 09/08/20 25 Active Social History Tobacco Use Types Packs/Day Years Used Date Smoking Tobacco: Never Assessed Sex and Gender Information Value Date Recorded Sex Assigned at Not on file Legal Sex Male 11:38 AM EDT Gender Identity Not on file Sexual Orientation Not on file Plan of Treatment Health Maintenance Due Date Last Done Comments DTaP,Tdap,and Td Vaccines (1 - Tdap) 1992 Hepatitis B Vaccines (1 of 3 - 19+ 3-dose series) 1992 Pneumococcal Vaccine: 50+ Ye ars (1 of 2 - PCV) 1992 Zoster Vaccines (1 of 2) 2023 Cholesterol Screening (Lipid Panel) 08/16/2024 Colorectal Cancer Screening: Colonoscopy 08/16/2024 HIV Screening 08/16/2024 Hepatitis C Screening 08/16/2024 Social Influencers of Health Screening 08/16/2024 Depression Screening 11/04/2024 COVID-19 Vaccine ( - 2023-2 5 season) 2025 Influenza Vaccine (#1) 2025 HIB Vaccines Aged Out No longer eligi ble based on patient's age to complete this topic HPV Vaccines Aged Out No longer eligi ble based on patient's age to complete this topic Hepatitis A Vaccines Aged Out No long er eligible based on patient's age to complete this topic IPV Vaccines Aged Out No longer eligi ble based on patient's age to complete this topic MMR Vaccines Aged Out No longer eligi ble based on patient's age to complete this topic Meningococcal ACWY Vaccine Aged Out N o longer eligible based on patient's age to complete this topic Meningococcal B Vaccine Aged Out No l onger eligible based on patient's age to complete this topic RSV Immunization Patients Un teresa 20 months Aged Out No longer eligible b ased on patient's age to complete this topic Varicella Vaccines Aged Out No longer eligible based on patient's age to complete this topic [place] [address] [place] [id number] [facility] Care Teams Edi Coordinator Relationship Specialty Start Date End Date Skylar Luna MD [address] [place] [address] , [address] [facility] D/B/A: [facility] [place] PCP - General 06/03/24
== END 2025-07-12 12:35 | disposition home or self-care (01) ==
LOC: HO.ENCR 10:40
PROVIDERS: PCP Internal Medicine; Visit Provider Physician Assistant
DX: E11.42 Type 2 diabetes mellitus with diabetic polyneuropathy (principal); Z79.4 Long term (current) use of insulin; I10 Essential (primary) hypertension; E78.5 Hyperlipidemia, unspecified; E66.01 Morbid (severe) obesity due to excess calories; Z68.41 Body mass index [BMI] 40.0-44.9, adult; Z13.9 Encounter for screening, unspecified

== ENCOUNTER → 2025-07-12 10:39 | Outpatient (BNVA) | payer OTHER, SELFPAY | PROVIDERS: PCP Internal Medicine; Visit Provider Physician Assistant | DX: E11.42 Type 2 diabetes mellitus with diabetic polyneuropathy (principal); E11.29 Type 2 diabetes mellitus with other diabetic kidney complication; I10 Essential (primary) hypertension; E78.5 Hyperlipidemia, unspecified; E11.51 Type 2 diabetes mellitus with diabetic peripheral angiopathy without gangrene; E66.01 Morbid (severe) obesity due to excess calories; Z68.41 Body mass index [BMI] 40.0-44.9, adult; Z79.4 Long term (current) use of insulin | CPT/HCPCS: 82947; 83036; 99212 ==